=== PATIENT | male | born 2000 | race Caucasian/White ===

== ENCOUNTER 2024-05-22 16:36 | Emergency (ER) | payer OTHER ==
[~2024-05-22] VITALS: Ht 177.8 cm; Wt 49.9 kg
[2024-05-22 16:41] VITALS: BP 140/95; PULSE 125; RESP 18; TEMP 97.3; O2SAT 97
[2024-05-22 16:55] VITALS: O2SAT 97
[2024-05-22 18:58] VITALS: O2SAT 97
[2024-05-22 19:06] VITALS: TEMP 98.1
[2024-05-22 19:15] LABS: BILIRUBIN,URINE NEGATIVE (NEGATIVE); BLOOD, URINE NEGATIVE (NEGATIVE); COLOR,URINE YELLOW (YELLOW); LEUKOCYTE ESTERASE ,URINE 1+ (NEGATIVE); NITRITE, URINE NEGATIVE (NEGATIVE); PROTEIN,URINE TRACE (NEGATIVE); UGLUCOSE NEGATIVE (NEGATIVE); UROBILINOGEN,URINE 0.2 EU/dL (0.2 - 1)
[2024-05-22 19:17] LABS: APPEARANCE,URINE SLIGHTLY HAZY (CLEAR)
[2024-05-22 19:18] LABS: BACTERIA,URINE 2+ /HPF (None Seen); MUCUS,URINE None Seen /LPF (None Seen); RBC,URINE 0 /HPF (0-5); SQUAMOUS EPITHELIAL CELL,UR 0-3 (FEW) /LPF (0-3 (FEW))
[2024-05-22] MEDS ORDERED: SULF-59 PO (20:51)
[2024-05-22 21:15] VITALS: BP 128/77; PULSE 91; RESP 16; O2SAT 99
[2024-05-25] MEDS ORDERED: CIPR500T4 PO (19:15)
== END 2024-05-22 21:25 | disposition home or self-care (01) ==
LOC: EDBD 16:36 → MED 16:36
DX: F19.90 Other psychoactive substance use, unspecified, uncomplicated (principal); R03.0 Elevated blood-pressure reading, without diagnosis of hypertension; Z79.899 Other long term (current) drug therapy
CPT/HCPCS: 71045; 81001; 87086; 87186; 93005; 99285